=== PATIENT | female | born 1990 | race Caucasian/White ===

== ENCOUNTER 2018-06-30 16:14 | Emergency (ER) | payer OTHER, SELFPAY ==
--- NOTE | 2018-06-30 16:37 | NUR.NOTE ---
Nursing Note: Per Access; Raya the patient left without being seen. Beatrice Lo.
== END 2018-06-30 16:36 | disposition left before discharge ==
LOC: ER 16:39
DX: Z53.21 Procedure and treatment not carried out due to patient leaving prior to being seen by health care provider (principal)

== ENCOUNTER 2018-07-03 09:14 | Emergency (ER) | payer SELFPAY ==
[2018-07-03 09:18] VITALS: BP 137/73; PULSE 93; RESP 20; TEMP 36.6; O2SAT 95
--- NOTE | 2018-07-03 09:46 | W.ED.GENAD ---
Discharge Plan Disposition Patient Disposition: HOME Condition: Stable Discharge Details Chief Complaint: RespSymp Clinical Impression: Pneumonia Primary Care Provider: Rosey Montanez ED Provider: Nabor Guadarrama Home Meds and New Rx's Prescriptions: New prednisone 20 mg tablet 40 mg PO DAILY Qty: 8 RF: 0 levofloxacin 750 mg tablet 750 mg PO DAILY Qty: 4 RF: 0 benzonatate 200 mg capsule 200 mg PO TID PRN (Reason: cough) Qty: 20 RF: 0 Continue budesonide-formoterol [Symbicort] 10.2 GM HFA aerosol inhaler 1 puff Inhalation DAILY RF: 0 fluoxetine 40 mg Capsule 40 mg PO DAILY RF: 0 albuterol sulfate [Ventolin HFA] 90 mcg/actuation Hfa Aerosol Inhaler 2 puff Inhalation PRN PRNRF: 0 Discharge Instructions Instructions: Pneumonia (ED) Additional Instructions: Return immediately to the emergency department for any new or worsening symptoms. Otherwise follow-up with your primary care provider as needed for reassessment if not improving by the end of your antibiotic therapy Stand Alone Forms: Work Release Referrals: Rosey Montanez [Primary Care Provider] - (As needed for reassessment or if not improving) Discharge Data Discharge Date/Time-TO BE ENTERED AT DEPARTURE: 07/03/18 11:16 Medical Decision Making Patient presenting to the emergency department for chief complaint of worsening cough and chest congestion. Patient states that she had a common cold 1 week ago that seemed to get better but then over the last 2 days she has noticed a worsening chest congestion, cough, chest tightness. Patient does state that she is an asthmatic and has been using her medication as prescribed which the inhalers have helped to relieve some of her symptoms but she has a history of pneumonia with similar presentation. Physical exam is positive for bilateral lower expiratory wheezing and rhonchi otherwise unremarkable. Differential diagnosis to include pneumonia, upper respiratory tract infection/bronchitis, asthma exacerbation due to URI. Plan to perform radiological imaging of the chest and give DuoNeb. Patient did feel improvement after nebulized treatment. Review of radiological imaging shows no acute findings noted per radiologist interpretation but I am questioning a possible left lower lobe infiltrate. Given this and patient's symptoms of worsening of symptoms after improvement of upper respiratory tract infection I am concerned for pneumonia. Given patient's history of admission for pneumonia, moderate asthma with increased use of rescue inhaler [facility] I did discuss the risk versus benefit of this therapy with the patient prior to initiating it. Patient also given prescription for prednisone which she does not want to begin immediately but I told her to start this tomorrow if she is not having any improvement or feels any worsening chest. Patient also prescribed Tessalon Perles for cough. After discussion of diagnosis and plan of care patient has no further needs, questions, or concerns and states clear understanding to return to the emergency department for any worsening symptoms. Lab Data Lab results reviewed: Yes I reviewed the patient's lab results. HPI General Mode of arrival: ambulatory. Date/Time Provider Initiated Documentation: 07/03/18 09:16. Limitations to Documentation: no limitations. Information obtained by: patient. History of Present Illness 28 year old F presents to the emergency department with the chief complaint of Chest congestion, cough, described as moderate, Quality is described as aching, and is localized to the chest. Patient started experiencing this day(s) (2) and it has been constant. No relieving factors improve symptom(s), No exacerbating factors reported . Patient did receive the following treatments prior to arrival, NSAID Related Data Home Medications Medication Instructions Recorded Confirmed budesonide-formoterol [Symbicort] 1 puff INHALATION DAILY 01/25/18 07/03/18 albuterol sulfate [Ventolin HFA] 2 puff INHALATION PRN PRN 07/03/18 07/03/18 benzonatate 200 mg PO TID PRN #20 cap 07/03/18 fluoxetine 40 mg PO DAILY 07/03/18 07/03/18 levofloxacin 750 mg PO DAILY #4 tab 07/03/18 prednisone 40 mg PO DAILY #8 tab 07/03/18 Previous Rx's Medication Instructions Recorded benzonatate 200 mg PO TID PRN #20 cap 07/03/18 levofloxacin 750 mg PO DAILY #4 tab 07/03/18 prednisone 40 mg PO DAILY #8 tab 07/03/18 Allergies Allergy/AdvReac Type Severity Reaction Status Date / Time codeine Allergy Intermediate Hives Unverified 07/03/18 09:22 Penicillins Allergy Intermediate Hives Unverified 07/03/18 09:22 Sulfa (Sulfonamide Allergy Intermediate Hives Unverified 07/03/18 09:22 Antibiotics) General Stated Complaint: RespSymp FLORECITA: 4 Review of Systems Constitutional Reports chills, Reports difficulty sleeping (Due to coughing), Reports fatigue, Reports fever(s) and Reports malaise ENT Denies otalgia, Reports nasal congestion, Reports sinus pressure and Reports sore throat Cardiovascular Denies palpitations and Reports dyspnea Respiratory Reports as per HPI, Reports chest congestion, Reports cough and Reports dyspnea Musculoskeletal Denies joint swelling Integumentary/Breasts Denies rash Endocrine Reports fatigue and Denies palpitations PFSH Medical History Anxiety (Chronic) Asthma (Chronic) Depression (Chronic) Social History Smoking/Tobacco Use Status: Never Surgical History Cleft palate (Resolved) Female Reproductive History Menstrual Date of last menstrual period: 06/19/18 Exam Const General: cooperative, comfortable and no acute distress Orientation: alert, awake and oriented x3 HENMT Ears: hearing grossly normal bilaterally and TM's normal bilaterally Face and sinus: sinus tenderness ethmoid Mouth: oral mucosae normal Throat: posterior oropharynx normal Eyes General: appearance normal, both eyes and all related structures Conjunctivae: conjunctivae normal Sclera: sclerae normal Neck Neck: normal visual inspection, full ROM, no lymphadenopathy, meningismus present and no JVD Resp Effort & Inspection: normal respiratory effort, able to speak in complete sentences, no audible wheezes, cough Quality of cough: actively coughing and not labored Auscultation: clear to auscultation bilaterally, rhonchi lower bilaterally (mild) and wheezes expiratory wheezes and lower bilaterally Cardio Rate: regular rate Rhythm: regular rhythm Heart Sounds: S1 normal and S2 normal Skin General skin exam: no rashes or lesions noted and dry skin Rashes: no rashes Neuro General: alert, awake, oriented x3 and gait normal Course Vital Signs Temperature 36.6 C 07/03/18 09:18 Pulse 93 H 07/03/18 09:18 Respiratory Rate 20 07/03/18 09:18 Blood Pressure 137/73 07/03/18 09:18 Pulse Oximetry 95 07/03/18 09:18 Temperature 36.6 C 07/03/18 09:18 Pulse 93 H 07/03/18 09:18 Respiratory Rate 20 07/03/18 09:18 Blood Pressure 137/73 07/03/18 09:18 Blood Pressure Position Sitting 07/03/18 09:18 Pulse Oximetry 95 10/18/18 09:18 Oxygen Delivery Method Room Air 07/03/18 09:18 Oxygen Flow Rate 0 07/03/18 09:18
[2018-07-03 09:52] VITALS: PULSE 93; RESP 12; RESP 20; RESP 4; O2SAT 95
[2018-07-03] MEDS: Albuterol/Ipratropium 3 ML UPD VIAL UPD (09:52)
--- NOTE | 2018-07-03 10:36 | DI.RAD_ITS ---
SYMPTOM/DIAGNOSIS: COUGH, FEVER PA AND LATERAL CHEST: There are regions of apparent scarring involving the right lower lobe and lingula. The lungs are otherwise. There is no pleural effusion. The cardiovascular structures are intact. SUMMARY: No evidence of acute cardiopulmonary disease.
[2018-07-03] MEDS: LEVOFLOXACIN 500 MG, LEVOFLOXACIN 250 MG 750 MG PO (11:12)
== END 2018-07-03 11:16 | disposition home or self-care (01) ==
PROVIDERS: Emergency Provider Nurse Practitioner Family; PCP Family Medicine
DX: J18.9 Pneumonia, unspecified organism (principal)
CPT/HCPCS: 81025; 94640; 99283; 71046; J7620

== ENCOUNTER 2018-11-13 17:44 | Outpatient (REF) | payer BC, SELFPAY ==
[2018-11-13 21:30] LABS: Abs Immature Grans 0.02 k/cumm (0.0-0.09); Absolute Basophil Count 0.03 k/cumm (0.0-0.2); Absolute Eosinophil Count 0.51 k/cumm (0.0-0.7); Absolute Lymphocyte Count 1.28 k/cumm (1.2-3.4); Absolute Monocyte Count 0.53 k/cumm (0.11-0.7); Absolute Neutrophil Count 4.19 k/cumm (1.2-6.7); Basophils % 0.5; Eosinophils % 7.8; HGB 13.5 g/dL (12.0-15.5); Immature Grans % 0.3; Lymphocytes % 19.5; Mean Corp. HGB Concentration 35.5 g/dL (32.0-36.0); Mean Corpuscular Hemoglobin 30.8 pg (27.0-33.0); Mean Corpuscular Volume 86.8 fL (80-95); Mean Platelet Volume 10.7 fL (8.0-11.0); Monocytes % 8.1; Neutrophils % 63.8; Platelet Count 262 x1000/uL (130-400); RBC 4.38 m/cumm (4.00-5.20); RBC Distribution Width 12.4 % (11.7-14.6); White Blood Cell Count 6.56 k/cumm (4.4-10.8)
[2018-11-13 21:36] LABS: Iron 137 ug/dL (50-175); Total Iron Binding Capacity 322 ug/dL (250-450); Transferrin Sat 43 % (15-50)
[2018-11-13 21:57] LABS: ALT 28 U/L (12-78); AST 19 U/L (15-37); Albumin 4.1 g/dL (3.4-5.0); Alkaline Phosphatase 47 U/L (46-116); BUN 16 mg/dL (7-18); Bilirubin, Total 0.6 mg/dL (0.2-1.0); CREATININE 0.78 mg/dL (0.55-1.02); Chloride 100 mmol/L (98-107); Ferritin 35 ng/mL (8-388); Glucose 82 mg/dL (70-100); Potassium 3.9 mmol/L (3.5-5.1); Sodium 137 mmol/L (136-145); TSH (W/Ref FT4) 1.27 uIU/mL (0.358-3.74); Total Protein 7.3 g/dL (6.4-8.2)
== END 2018-11-13 18:04 ==
LOC: NCHCN 17:44
PROVIDERS: PCP Family Medicine; Visit Provider Nurse Practitioner
DX: R53.83 Other fatigue (principal)
CPT/HCPCS: 80053; 82728; 83540; 83550; 84443; 85025